=== PATIENT | female | born 1995 | race Two or more races ===

== ENCOUNTER 2020-06-26 09:48 | Emergency (ER) | payer MEDICAID, OTHER ==
[~2020-06-26] VITALS: Ht 167.6 cm; Wt 53.5 kg
[2020-06-26] MEDS ORDERED: LORazepam 0.5 MG TAB PO ONE (10:15)
[2020-06-26 10:23] LABS: Basophils # (auto) 0 10 ^3/uL (0-0.2); Basophils % (auto) 0.3 % (0.0-2.0); Eosinophils # (auto) 0 10 ^3/uL (0-0.8); Eosinophils % (auto) 0.3 % (0.0-7.0); Hematocrit 38.2 % (36.0-46.0); Hemoglobin 12.6 g/dL (12.2-16.2); Lymphocytes # (auto) 1.8 10 ^3/uL (0.4-5.4); Lymphocytes % (auto) 25.3 % (10.0-50.0); Mean Corpuscular Hemoglobin 27.1 pg (28.0-32.0); Mean Corpuscular Hgb Conc. 32.9 g/dL (32.0-36.0); Mean Corpuscular Volume 82.4 fL (80.0-100.0); Monocytes # (auto) 0.7 10 ^3/uL (0-1.3); Monocytes % (auto) 9.3 % (0.0-12.0); Neutrophils # (auto) 4.7 10 ^3/uL (1.6-8.6); Neutrophils % (auto) 64.8 % (37.0-80.0); Platelet Count (auto) 279 10^3/uL (140-450); Red Blood Cells 4.64 10^6/uL (4.0-5.20); Red Cell Distribution Width 13.5 % (11.8-14.3); White Blood Cell 7.2 10^3/uL (4.4-10.8)
[2020-06-26 10:41] LABS: Albumin 4.8 g/dL (3.4-5.0); Anion Gap 8 (5-15); Blood Alcohol < 3.0 mg/dL (0-5); Blood Urea Nitrogen 14 mg/dL (7-18); Calcium 9.4 mg/dL (8.5-10.1); Carbon Dioxide 25 mmol/L (21-32); Chloride 105 mmol/L (98-107); Glucose 87 mg/dL (74-106); Magnesium 2.4 mg/dL (1.6-2.6); Potassium 3.6 mmol/L (3.5-5.1); Sodium 138 mmol/L (136-145)
[2020-06-26 10:44] LABS: Alanine Aminotransferase 16 U/L (13-56); Alkaline Phosphatase 41 U/L (45-117); Aspartate Aminotransferase 23 U/L (15-37); BUN/Creatinine Ratio 19.4; Bilirubin, Total 0.5 mg/dL (0.2-1.0); GFR African American 127 mL/min; GFR Non-African American 105 mL/min; Total Protein 8.5 g/dL (6.4-8.2)
[2020-06-26] MEDS ORDERED: LORazepam 2MG/ML-1ML VIAL IM ONE (11:30)
[2020-06-26 12:21] LABS: Salicylate < 1.7 mg/dL (2.8-20.0)
[2020-06-26 12:23] LABS: Acetaminophen < 2.0 ug/mL (10-30)
[2020-06-26 13:10] LABS: Urine Bacteria NONE SEEN /hpf (None Seen); Urine Blood Negative /uL (Negative); Urine Mucus MANY (None Seen); Urine Specific Gravity 1.034 (1.001-1.035); Urine WBC 4 /hpf (0 - 5)
[2020-06-26 13:30] LABS: Amphetamine Screen, Urine NEGATIVE (NEGATIVE); Barbiturate Scree,Urine NEGATIVE (NEGATIVE); Benzodiazephine Screen, Urine NEGATIVE (NEGATIVE); Cannabinoid Screen, Urine POSITIVE (NEGATIVE); Cocaine Screen, Urine NEGATIVE (NEGATIVE); Opiate Scree,Urine NEGATIVE (NEGATIVE); Phencyclidine Screen, Urine NEGATIVE (NEGATIVE)
[2020-06-26 18:30] VITALS: BP 109/75
== END 2020-06-26 18:33 | disposition home or self-care (01) ==
LOC: ER 09:48 → EDBD 09:48 → ER 18:33
DX: F41.9 Anxiety disorder, unspecified (principal); R41.82 Altered mental status, unspecified; F17.210 Nicotine dependence, cigarettes, uncomplicated
CPT/HCPCS: 36415; 71045; 80053; 80307; 80320; 80329; 81001; 81025; 83735; 85025; 96372; 99284; J2060

== ENCOUNTER 2021-01-18 21:06 | Emergency (ER) | payer MEDICAID ==
[~2021-01-18] VITALS: Ht 170.2 cm; Wt 54.4 kg
[2021-01-19] MEDS ORDERED: PROPOFOL 10 MG/ML 20 ML IV ONE ×2 (00:15→02:15)
[2021-01-19] MEDS ORDERED: PROPOFOL 100 ML IV ONE (00:59)
[2021-01-19] MEDS ORDERED: MIDAZOLAM HCL 1MG/1ML-2 ML VIAL IV ONE (01:45)
[2021-01-19] MEDS ORDERED: MIDAZOLAM HCL 1MG/1ML-2 ML VIAL ONE (01:46)
[2021-01-19 03:59] VITALS: BP 106/68
== END 2021-01-19 04:03 | disposition home or self-care (01) ==
LOC: ER 21:07
DX: S03.02XA Dislocation of jaw, left side, initial encounter (principal); X58.XXXA Exposure to other specified factors, initial encounter; Y93.89 Activity, other specified; Y92.89 Other specified places as the place of occurrence of the external cause; Y99.8 Other external cause status
CPT/HCPCS: 21480; 70110; 70486; 96374; 99152; 99285; J2250; J2704

== ENCOUNTER 2021-12-05 22:22 | Emergency (ER) | payer MEDICAID ==
[~2021-12-05] VITALS: Ht 170.2 cm; Wt 59.0 kg
[2021-12-06] MEDS ORDERED: BENZ100C19 PO (00:27)
[2021-12-06] MEDS ORDERED: DOXY100C2 PO (00:27)
[2021-12-06] MEDS ORDERED: IBUP800T27 PO (00:27)
[2021-12-06] MEDS ORDERED: OLANZapine 5 MG TAB PO ONE (02:00)
[2021-12-06 02:31] LABS: Basophils # (auto) 0 10 ^3/uL (0-0.2); Basophils % (auto) 0.2 % (0.0-2.0); Eosinophils # (auto) 0 10 ^3/uL (0-0.8); Eosinophils % (auto) 0.1 % (0.0-7.0); Hematocrit 35.4 % (36.0-46.0); Hemoglobin 11.7 g/dL (12.2-16.2); Lymphocytes # (auto) 1.5 10 ^3/uL (0.4-5.4); Lymphocytes % (auto) 18.5 % (10.0-50.0); Mean Corpuscular Hemoglobin 27.2 pg (28.0-32.0); Mean Corpuscular Hgb Conc. 33.2 g/dL (32.0-36.0); Mean Corpuscular Volume 81.8 fL (80.0-100.0); Monocytes # (auto) 0.6 10 ^3/uL (0-1.3); Monocytes % (auto) 6.8 % (0.0-12.0); Neutrophils # (auto) 6.2 10 ^3/uL (1.6-8.6); Neutrophils % (auto) 74.4 % (37.0-80.0); Red Blood Cells 4.32 10^6/uL (4.0-5.20); Red Cell Distribution Width 15.7 % (11.8-14.3); White Blood Cell 8.3 10^3/uL (4.4-10.8)
[2021-12-06 02:32] LABS: Alanine Aminotransferase 16 U/L (13-56); Albumin 4.2 g/dL (3.4-5.0); Anion Gap 7 (5-15); Aspartate Aminotransferase 14 U/L (15-37); BUN/Creatinine Ratio 13.7; Blood Alcohol < 3.0 mg/dL (0-5); Blood Urea Nitrogen 13 mg/dL (7-18); Calcium 9.4 mg/dL (8.5-10.1); Carbon Dioxide 24 mmol/L (21-32); Chloride 108 mmol/L (98-107); GFR African American 91 mL/min; GFR Non-African American 76 mL/min; Glucose 113 mg/dL (74-106); Potassium 3.9 mmol/L (3.5-5.1); Salicylate < 1.7 mg/dL (2.8-20.0); Sodium 139 mmol/L (136-145)
[2021-12-06 02:35] LABS: Alkaline Phosphatase 37 U/L (45-117); Bilirubin, Total 0.6 mg/dL (0.2-1.0); Total Protein 7.6 g/dL (6.4-8.2)
[2021-12-06 03:02] LABS: Acetaminophen < 2.0 ug/mL (10-30)
[2021-12-06] MEDS ORDERED: LORazepam 2MG/ML-1ML VIAL IM ONE (19:00)
[2021-12-06] MEDS ORDERED: HALOPERIDOL LACTATE 5 MG/ML INJ VIAL IM ONE (19:00)
[2021-12-07 09:34] VITALS: BP 104/70
== END 2021-12-07 15:33 | disposition left against medical advice (07) ==
LOC: EDUNIT# 22:22 → EDBD 22:22 → ER 22:24
DX: F29 Unspecified psychosis not due to a substance or known physiological condition (principal); F20.9 Schizophrenia, unspecified
CPT/HCPCS: 36415; 80053; 80320; 80329; 85025; 96372; 99285; J1630; J2060